=== PATIENT | male | born 1995 | race Caucasian/White ===

== ENCOUNTER 2025-01-02 14:52 | Emergency (ER) | payer SELFPAY ==
[2025-01-02 14:53] VITALS: BP 155/105; PULSE 118; RESP 22; TEMP 36.9; O2SAT 98; BMI 33.5
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
[2025-01-02 15:27] LABS: Absolute Lymphocyte Count 1.05 X10^3/uL (0.83-4.51); Absolute Neutrophil Count 12.4 X10^3/uL (2.0-7.7); Basophil# 0.03 X10^3/uL; Basophil% 0.2 % (0-1); Eosinophil# 0.01 X10^3/uL; Eosinophils% 0.1 % (0-5); Hematocrit 42.7 % (40-54); Lymphocyte # 1.05 X10^3/ul (0.83-4.51); Lymphocyte % 7.2 % (19-41); Mean Corp Hgb Conc 35.1 g/dL (32-36); Mean Corpuscular Hgb 30.7 pg (27.0-32.0); Mean Corpuscular Volume 87.3 fL (80-94); Mean Platelet Vol. 8.9 fl (6.2-12.0); Monocyte# 1.04 X10^3/uL; Monocyte% 7.1 % (0-10); NRBC Flagged by Analyzer 0 % (0-5); Neutrophil # 12.44 X10^3/uL (2.7-7.7); Neutrophil % 84.8 % (47-70); Platelet Count 444 K/mm3 (150-450); RBC Distribution Width CV 11.7 % (11.6-14.6); RBC Distribution Width SD 37.6 fl (35.1-43.9); Red Blood Count 4.89 M/mm3 (4.6-6.2); White Blood Count 14.7 K/mm3 (4.4-11.0)
[2025-01-02 15:58] LABS: ALB/GLOB Ratio 1.8 RATIO (0.9-2.4); AST(SGOT) 36 U/L (<=37); Alanine Aminotransfer ALT/SGPT 55 U/L (<=46); Albumin, Serum 4.6 g/dL (3.5-5.0); Alcohol, Blood (Medical)-Serum < 10.1 mg/dL (<=10.0); Alkaline Phosphatase 67 U/L (40-129); Anion Gap 18 (5-15); BUN 10 mg/dL (4-19); BUN/Creat Ratio 7.3 RATIO (10-20); Calcium,Total 9.7 mg/dL (7.6-11.0); Carbon Dioxide 18.4 mmol/L (21.0-32.0); Chloride 98 mmol/L (98-108); Creatinine, Serum 1.36 mg/dL (0.70-1.20); EST Glomerular Filtration Rate 72 (>60); Estimated Creatinine Clearance 99.73 ml/min (50-250); Globulin 2.5 g/dL (2.2-4.2); Glucose 186 mg/dL (70-99); Potassium 3.4 mmol/L (3.3-5.1); Protein, Total 7.1 g/dL (5.9-8.4); Sodium Level 134 mmol/L (133-145); Total Bilirubin 0.36 mg/dL (0.00-1.30)
[2025-01-02 16:00] VITALS: BP 159/99; PULSE 102; RESP 20; O2SAT 97
--- NOTE | 2025-01-02 16:49 | ED.RN ---
TO BEDSIDE. PT ANGRY, WANTING TO LEAVE ROOM. RN ESCORTED OUT OF ROOM TO WAITING ROOM. DID NOT GIVE ANY INFORMATION PER PT REQUEST. STATES THAT PT IS IN A PSYCHOSIS AND NEEDS MENTAL HEALTH EVALUATION. STATES STOPPED TAKING MEDS AND NOW HAS INCREASED ANGER AND THREATENS TO KILL . DR. DUONG MADE AWARE, NO NEW ORDERS. PT DENIES SI AND HI
[2025-01-02 17:00] VITALS: BP 151/93; PULSE 99; RESP 23; O2SAT 100
--- NOTE | 2025-01-02 17:38 | ED.RN ---
pt told this RN that he wanted to leave as soon as possible. informed Dr. Prasanna MD in to speak with patient about results. Pt refusing vitals, IV taken out and discarded. gave CRISIS phone number for safety.
== END 2025-01-02 17:39 | disposition home or self-care (01) ==
PROVIDERS: Emergency Provider Emergency Medicine; Visit Provider Emergency Medicine
DX: R41.82 Altered mental status, unspecified (principal); F41.9 Anxiety disorder, unspecified; Z87.891 Personal history of nicotine dependence; F32.A Depression, unspecified; F90.9 Attention-deficit hyperactivity disorder, unspecified type; F12.90 Cannabis use, unspecified, uncomplicated; S00.83XA Contusion of other part of head, initial encounter; Y00.XXXA Assault by blunt object, initial encounter
CPT/HCPCS: 80053; 82077; 85025; 99285; A4216